=== PATIENT | female | born 1935 | race Caucasian/White ===

== ENCOUNTER 2019-04-29 19:45 | Inpatient (IN) | payer MEDICARE, SELFPAY ==
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
[2019-04-29 21:46] VITALS: BP 169/83; PULSE 76; RESP 18; TEMP 37.1; O2SAT 96
[2019-04-29 22:01] VITALS: BP 169/83; PULSE 76; RESP 18; TEMP 37.1; O2SAT 96
[2019-04-30 00:12] LABS: INR 1.1 (0.9-1.1); Prothrombin Time 10.8 sec (9.3-11.0)
[2019-04-30] MEDS: Normal Saline Flush 10 ML SYR (00:26)
[2019-04-30] MEDS: Normal Saline 1,000 ML 80 ML IV ×2 (00:26→17:07)
[2019-04-30] MEDS: Acetaminophen Solution 650 MG/20.3 ML CUP PO ×4 (00:49→17:38)
[2019-04-30 01:05] LABS: HCT 38.2 % (36.0-46.0); HGB 12.4 g/dL (12.0-15.5); Mean Corp. HGB Concentration 32.5 g/dL (32.0-36.0); Mean Corpuscular Hemoglobin 29.2 pg (27.0-33.0); Mean Corpuscular Volume 89.9 fL (80-95); Mean Platelet Volume 10.3 fL (8.0-11.0); Platelet Count 232 x1000/uL (130-400); RBC 4.25 m/cumm (4.00-5.20); RBC Distribution Width 13.9 % (11.7-14.6); White Blood Cell Count 9.89 k/cumm (4.4-10.8)
[2019-04-30 01:14] LABS: ALT 17 U/L (14-59); AST 18 U/L (15-37); Albumin 3.2 g/dL (3.4-5.0); Alkaline Phosphatase 56 U/L (46-116); Anion Gap 9.8 mmol/L (3-11); BUN 9 mg/dL (7-18); Bilirubin, Total 1.4 mg/dL (0.2-1.0); CO2 27.2 mmol/L (21.0-32.0); CREATININE 1.01 mg/dL (0.55-1.02); Calcium 8.3 mg/dL (8.5-10.1); Chloride 103 mmol/L (98-107); Estimated GFR 52.35 (mL/min/1.73m2); Glucose 149 mg/dL (74-106); Potassium 3.5 mmol/L (3.5-5.1); Sodium 140 mmol/L (136-145); Total Protein 6.4 g/dL (6.4-8.2)
[2019-04-30 03:43] VITALS: BP 155/70; PULSE 72; RESP 19; TEMP 36.6; O2SAT 95
[2019-04-30] MEDS: Heparin 5,000 UNITS/ML VIAL 5000 UNITS SC ×3 (05:56→21:40)
[2019-04-30 06:36] LABS: HCT 37.8 % (36.0-46.0); HGB 12.1 g/dL (12.0-15.5); Mean Corpuscular Hemoglobin 28.8 pg (27.0-33.0); Mean Platelet Volume 10.3 fL (8.0-11.0); Platelet Count 244 x1000/uL (130-400); RBC Distribution Width 13.9 % (11.7-14.6); White Blood Cell Count 8.16 k/cumm (4.4-10.8)
[2019-04-30 06:51] LABS: ALT 17 U/L (14-59); AST 17 U/L (15-37); Albumin 3.1 g/dL (3.4-5.0); Alkaline Phosphatase 53 U/L (46-116); Anion Gap 10.1 mmol/L (3-11); BUN 9 mg/dL (7-18); Bilirubin, Total 1.8 mg/dL (0.2-1.0); CO2 25.9 mmol/L (21.0-32.0); CREATININE 0.79 mg/dL (0.55-1.02); Calcium 8.3 mg/dL (8.5-10.1); Chloride 105 mmol/L (98-107); Glucose 113 mg/dL (74-106); Potassium 3.4 mmol/L (3.5-5.1); Sodium 141 mmol/L (136-145); Total Protein 6.3 g/dL (6.4-8.2)
[2019-04-30 07:40] VITALS: BP 169/93; PULSE 76; RESP 18; TEMP 37.1; O2SAT 96
--- NOTE | 2019-04-30 08:47 | PDOC.CMIN ---
- If Service Date Differs Date of service: 04/30/19 Time of Service: 08:47 Care Management Initial Assess REASON FOR HOSPITALIZATION:: Fracture of the humerous and tibia PAST MEDICAL HISTORY/PAST SURGICAL HISTORY:: HTN, carcinoma of the skin, hiatal hernia, depression, GERD, anxiety PREVIOUS FUNCTIONAL STATUS/SOCIAL/FAMILY SUPPORTS:: Leann lives at home alone elderly housing in [place], [place]. She does not use equipment at baseline, Leann family is present during assessment Leann does drive, she also depends on her family for transportation for appointments. She is able to make her own meals, and states she has several friends in the apartment complex. CURRENT FUNCTIONAL STATUS:: Leann is alert and engaged during assessment, her family is present and engaged. Leann is unsure what recovery will look like and wants to be informed of expectations. She will plan to return home with increase services however is open to SNF if needed at time of discharge. CM did provide VPAC form to family to review local and distance [place] [facility] [place] facility, including how to compare online. will order walking boot to have it placed on Wednesday. Leann will be assessed by PT for mobility and function. Leann will also benefit from OT to determine level of need at home. ADVANCE DIRECTIVES:: None on file patient states she does have one, CM reviewed the [place] advance directive site, without result. CM will follow up with primary care to determine if primary care has a copy. Has patient been provided with information about the portal?: Yes Did the patient sign up for the portal?: No CODE STATUS:: Full Code INSURANCE COVERAGE / FINANCIAL ISSUES:: Medicare and finanical assistance CURRENT HOME/COMMUNITY SERVICES/EQUIPMENT:: [facility] ([employer]) is the person she reports does paperwork with her. PRIMARY CARE PHYSICIAN:: Cecille Arriaga ([facility]). POTENTIAL DISCHARGE NEEDS:: To be determined home with home health and primary care follow up vs SNF for short term rehab. PATIENT/FAMILY EDUCATION NEEDS:: Discharge education, limitations and follow up plan of care including ask me three and self management. ANTICIPATED BARRIERS TO DISCHARGE:: None identified TRANSPORTATION:: Pending disposition if she returns home Son Sharad will provide transportation PLAN:: Leann will be discharge when medically ready. She is currently receiving pain management, and PT/OT services have been ordered. CM to continue ongoing assessment to provide support discharge planning and disposition.
--- NOTE | 2019-04-30 09:14 | DI.RAD_ITS ---
EXAM: XR SHOULDER LT COMPLETE 2+V INDICATION: CHECK PROX HUMERUS FX ALIGNMENT. COMPARISON: No exams were available for comparison TECHNIQUE: 2D digital imaging was performed. FINDINGS: There is a fracture extending transversely through the surgical neck of the humerus. There is a disp laced fragment involving the greater tuberosity. Fracture does not appear to extend to the articular surface. The glenoid and AC joint appear intact. No rib fractures or pneumothorax is seen. IMPRESSION: Fracture of the humeral head with displaced greater tuberosity fragment.
--- NOTE | 2019-04-30 09:19 | DI.RAD_ITS ---
EXAM: XR ANKLE LT COMPLETE INDICATION: CHECK FX ALIGNMENT IN SPLINT. COMPARISON: No exams were available for comparison TECHNIQUE: 2D digital imaging was performed. FINDINGS: Exam is limited by posterior cast material. There is lateral soft tissue swelling. There is a mildl y displaced fracture of the distal fibula. There is mild widening of the medial ankle mortise. No a dditional fractures are identified. IMPRESSION: Mildly displaced distal fibular fracture and mild medial ankle mortise widening.
--- NOTE | 2019-04-30 09:58 | DI.VRAD_ITS ---
PROCEDURE INFORMATION: Exam: XR Left Shoulder Exam date and time: 04/30/2019 9:14 AM Age: 83 years old Clinical indication: Condition or disease; Patient HX: Check prox humerus FX alignment TECHNIQUE: Imaging protocol: XR Left shoulder. Views: 2 or more views. COMPARISON: No relevant prior studies available. FINDINGS: Bones/joints: Impacted humeral neck fracture. 4.6 cm fracture fragment is displaced a lateral to the humeral head. Soft tissues: Soft tissue swelling of the shoulder IMPRESSION: 1. Impacted humeral neck fracture. 2. 4.6 cm fracture fragment is displaced a lateral to the humeral head. Dictated and Authenticated by: Corby Gutierrez MD. Ordering:RUSLAN Sorto MD
--- NOTE | 2019-04-30 09:59 | DI.VRAD_ITS ---
PROCEDURE INFORMATION: Exam: XR Left Ankle Exam date and time: 04/30/2019 9:19 AM Age: 83 years old Clinical indication: Condition or disease; Patient HX: Check FX alignment in splint TECHNIQUE: Imaging protocol: XR Left ankle. Views: 3 or more views. COMPARISON: No relevant prior studies available. FINDINGS: Bones/joints: Minimally displaced spiral oblique fracture of the distal fibula in good alignment. Soft tissues: Bimalleolar soft tissue swelling IMPRESSION: Minimally displaced spiral oblique fracture of the distal fibula in good alignment. . Dictated and Authenticated by: Corby Gutierrez MD. Ordering:RUSLAN Sorto MD
--- NOTE | 2019-04-30 10:26 | PHARADMIT ---
Addendum entered by Jazz Bailon 05/01/19 16:37: Pharmacy Note Subjective doing better than surgeon expected, working with PT, has fracture walking brace Objective bp-149/83 other VS okay no labs Assessment heparin discontinued, enoxaparin to start in the morning Plan possible SNF for rehab once ready Original Note: Admission Pharmacy Clinical Review Fractured humerous & Tibia Code Status Full Code Current Weight 72.5 kg Renally Cleared and Narrow Therapeutic Index Meds CrCl~52ml/min QTc Value / Action Taken qtc 456 BP Control, Fever BP 169/93 Pain 3/10 Electrolytes reviewed K+ 3.4 (not replaced at this time) DVT Prophylaxis Heparin SQ Opiate Usage / Scheduled Bowel Regimen Ordered yes/yes (not using Fentanyl) Plt/SCr for Heparin / Enoxaparin Plt 244 SCr 0.79 INR for Warfarin INR 1.1 H/H stable, WBC/Bands H/H 12.1/37.8 WBC 8.16 Antibiotic appropriateness n/a Cultures and Sensitivities n/a Surgical ABX d/c within 24 hr DM control / Insulin Dosing BG 113 Heart Failure (Check EF%) (ADOLFO's, B-Block, Diuretics) NONE IV to PO Switch Home Meds Reviewed Pt's own Prevacid 15mg....not brought in as of this note, RN aware Home Meds Not Ordered ok Comments Brought in from [facility]-they don't have Ortho on the weekends Ortho consult Will likely not need surgery, will need PT, ?short term rehab, ?swing
[2019-04-30] MEDS: POTASSIUM CHLORIDE 20 MEQ, POTASSIUM CHLORIDE 10 MEQ 30 MEQ PO (11:27)
[2019-04-30] MEDS: Polyethylene Glycol 3350 17 GM PACKET PO (12:47)
--- NOTE | 2019-04-30 13:00 | OCONE_ITS ---
Date of service: 04/30/19 Time of Service: 13:00 History of Present Illness History of Present Illness Chief Complaint: Left shoulder and left ankle pain Narrative: There is an 83-year-old white female who slipped on the ice and fell landing on her left side yesterday. She was seen at [facility] and was found to have a fracture distal fibula on the left that was mildly displaced. The ankle mortise was supposedly anatomically maintained. In addition she had a fracture of the proximal humerus on the left. The ho spitalist at [facility] would not accept the patient unless there was orthopedic coverage. This was despite the fact that she had no operative orthopedic problem. Their orthopedist was not can be available till Wednesday. They tried to have her go to [facility] but the hospitalist at [facility] also refused to admit the patient. The hospitalist at [facility] also refused. I was called by the ER physician at [facility] and I agreed to consult and treat the patient if the hospitalist at [facility] agreed to admit the patient. Dr. Kerr was the hospitalist and agreed to accept the patient with me as a consult. It was probably going to be really for placement because says she could not transfer move independently because of her to fractures. Assessment and Plan Assessment and plan (1) Fracture, humerus closed: Status: Acute Assessment and plan: Assessment: Mildly displaced fracture greater tuberosity on the left. Would not consider ORIF in an 83-year-old with the injury in the nondominant arm. Would treat closed with a sling. The main problem is to be make it difficult for her to use her upper extremities to walk when she has a fracture of her left ankle. Plan: Sling for comfort. We will let her move her arm as much as discomfort allows. Qualifiers: Encounter type: initial encounter Humerus Location: shaft Fracture morphology: comminuted Fracture alignment: displaced Laterality: left Qualified Code(s): S42.352A - Displaced comminuted fracture of shaft of humerus, left arm, initial encounter for closed fracture (2) Fracture of distal end of fibula: Status: Acute Assessment and plan: Assessment: Fracture distal fibula left with intact a nkle mortise. This will only require close treatment. And put her in an Aircast fracture walking boot. She will be able to put some weight on it but be a while before she can transfer and ambulate independently. She is going to need placement in a correction facility until she can move independently enough to go home. Plan: We will exchange her posterior splint for Aircast fracture walking boot tomorrow. PT will start working with her and see if she can start doing some transfers. She will need correction facility placement for mobilization until she is independent enough to go home. [facility] Medical History Basal cell carcinoma of skin (Acute) 2017 Chronic anxiety (Acute) Chronic constipation (Acute) GERD (gastroesophageal reflux disease) (Chronic) Hiatal hernia (Chronic) Major depression, chronic (Acute) Osteopenia (Acute) Social History Smoking/Tobacco Use Status: Former Tobacco Use Tobacco: How many years used: 5 Alcohol Intake: former Drug use: Never Do you feel safe at home: Yes Do you feel safe in your relationship?: Yes Exam Narrative Exam Narrative: Her left ankle is in the splint unfortunately she is plantarflexed in the splint which is not ideal. Neurovascular examination of her toes are intact. Neurovascular examination left hand is normal. Her sling is not well applied so I adjust the straps so it fits well and supports her arm. Limited gentle passive motion of her left shoulder does not cause her much discomfort. Since [facility] did not send her x-rays with her I obtain new x-rays today. 3 views of the left ankle show a short oblique fracture of the with mild displacement. AP and a Y view x-ray of the left shoulder shows humeral head is well centered in the glenoid. It looks like she has a mainly a greater t uberosity fracture with some moderate posterior and and medial displacement of the greater tuberosity fracture fragment. Results Last Vital Signs Temp 37.1 C 04/30/19 07:40 Pulse 76 04/30/19 07:40 Resp 18 04/30/19 07:40 BP 169/93 H 04/30/19 07:40 Pulse Ox 96 04/30/19 07:40 Labs Result diagrams: 04/30/19 06:05 04/30/19 06:05 Labs: Laboratory Results - last 24 hr 04/29/19 04/29/19 04/29/19 00:49 00:49 22:14 WBC 9.89 RBC 4.25 Hgb 12.4 Hct 38.2 MCV 89.9 MCH 29.2 MCHC 32.5 RDW 13.9 Plt Count 232 MPV 10.3 PT 10.8 INR 1.1 Sodium 140 Potassium 3.5 Chloride 103 Carbon Dioxide 27.2 Anion Gap 9.8 BUN 9 Creatinine 1.01 Estimated GFR/1.73 m2 52.35 Glucose 149 H Calcium 8.3 L Total Bilirubin 1.4 H AST 18 ALT 17 Alkaline Phosphatase 56 Total Protein 6.4 Albumin 3.2 L 04/30/19 04/30/19 06:05 06:05 WBC 8.16 RBC 4.20 Hgb 12.1 Hct 37.8 MCV 90.0 MCH 28.8 MCHC 32.0 RDW 13.9 Plt Count 244 MPV 10.3 PT INR Sodium 141 Potassium 3.4 L Chloride 105 Carbon Dioxide 25.9 Anion Gap 10.1 BUN 9 Creatinine 0.79 Estimated GFR/1.73 m2 >= 60.00 Glucose 113 H Calcium 8.3 L Total Bilirubin 1.8 H AST 17 ALT 17 Alkaline Phosphatase 53 Total Protein 6.3 L Albumin 3.1 L
[2019-04-30] MEDS: Normal Saline Flush 10 ML SYR IVP (13:46)
--- NOTE | 2019-04-30 15:08 | PGE_ITS ---
Date of Service Date of service: 04/30/19 Time of Service: 15:08 Assessment and Plan Assessment and plan (1) Fracture of distal end of fibula: Status: Acute Assessment and plan: The distal fibula fracture is being treated with a fracture boot. She is weightbearing as tolerated but will likely not tolerate much weight on that foot for quite some time. Physical therapy is done in initial evaluation and has already set her up with a platform walker. It will be quite tenuous in getting her back on her feet for the next several days. She will need a half-way facility for rehab going forward. (2) Fracture, humerus closed: Status: Acute Assessment and plan: Proximal humerus fracture on the left is going to limit her ability to triangulate to walk with her fractured left ankle. Physical therapy is going to work with her on this using the platform walker. We will see what her pain tolerance is. Her forgetfulness and dementia may play a role and could put her at increased risk of further falling and or reinjuring. Qualifiers: Encounter type: initial encounter Humerus Location: shaft Fracture morphology: comminuted Fracture alignment: displaced Laterality: left Qualified Code(s): S42.352A - Displaced comminuted fracture of shaft of humerus, left arm, initial encounter for closed fracture (3) Dementia: Status: Chronic Assessment and plan: Patient admits that she is forget full as well as being somewhat confused. Is not clear what her baseline is as far as activities of daily living. She lives independently in an apartment in [place]. Her son and daughter appear to be quite supportive. She remains a full code. Subjective Subjective Interval history since last seen: Patient was admitted overnight following a fall with fracture to the left humerus and left ankle yesterday, 04/29/2019. She was seen today by Dr. Olivares. He felt these were nonoperative injuries. He recommended a sling for the left arm and a fracture boot for the left foot. She can weight-bear as tolerated but did not think that she would be able to do transfers or any walking for quite some time. He recommends a half-way facility for rehab. Patient is with her son and daughter. She is quite confused and repetitive. They are providing some form of reassurance and support. Exam Narrative Exam Narrative: On exam the patient is obviously somewhat confused and confabulatory. She is able to recount some of the history but admits that she is forgetful. She is pleasant and interactive. She has no respiratory diffic ulty. Her lung exam is clear on the right and left. Her heart sounds are regular no significant murmur. No abdominal tenderness. The left arm shows significant bruising in the distal portion of the upper arm laterally. It is tender to any movement. Otherwise no outward sign of deformity. The left ankle is bandaged with a bulky dressing and posterior splint. Her toes are pink and appear to be well perfused. Objective Objective Clinical Data: Abnormal lab results 04/29/19 04/30/19 Range/Units 00:49 06:05 Potassium 3.4 L (3.5-5.1) mmol/L Glucose 149 H 113 H (74-106) mg/dL Calcium 8.3 L 8.3 L (8.5-10.1) mg/dL Total Bilirubin 1.4 H 1.8 H (0.2-1.0) mg/dL Total Protein 6.3 L (6.4-8.2) g/dL Albumin 3.2 L 3.1 L (3.4-5.0) g/dL Vital Signs Temperature 37.1 C 04/30/19 07:40 Temperature Source Tympanic 04/30/19 07:40 Pulse 76 04/30/19 07:40 Pulse Rhythm Regular 04/30/19 08:00 Respiratory Rate 18 04/30/19 07:40 Respiratory Effort Non-Labored 04/30/19 08:00 Respiratory Depth Normal 04/30/19 08:00 Respiratory Pattern Normal 04/30/19 08:00 Blood Pressure 169/93 H 04/30/19 07:40 Pulse Oximetry 96 04/30/19 07:40 Oxygen Delivery Method Room Air 04/30/19 07:40 Oxygen Flow Rate 0 04/30/19 07:40 Pain Level 3 04/30/19 10:21 Intake & Output 04/29/19 04/30/19 04/30/19 23:59 11:59 23:59 Intake Total 430 / 430 Output Total 400 / 400 Balance -400 / 30 430 / 30 Weight 72 kg 72.5 kg Intake: Oral 430 / 430 Output: Urine 400 / 400 Other: Urine Color Light Darlyn Urine Appearance Clear Clear Urine Odor Strong Voiding Methods Bedside Commode Laboratory Results WBC 8.16 k/cumm (4.4-10.8) 04/30/19 06:05 RBC 4.20 m/cumm (4.00-5.20) 04/30/19 06:05 Hgb 12.1 g/dL (12.0-15.5) 04/30/19 06:05 Hct 37.8 % (36.0-46.0) 04/30/19 06:05 MCV 90.0 fL (80-95) 04/30/19 06:05 MCH 28.8 pg (27.0-33.0) 04/30/19 06:05 MCHC 32.0 g/dL (32.0-36.0) 04/30/19 06:05 RDW 13.9 % (11.7-14.6) 04/30/19 06:05 Plt Count 244 x1000/uL (130-400) 04/30/19 06:05 MPV 10.3 fL (8.0-11.0) 04/30/19 06:05 PT 10.8 sec (9.3-11.0) 04/29/19 22:14 INR 1.1 (0.9-1.1) 04/29/19 22:14 Sodium 141 mmol/L (136-145) 04/30/19 06:05 Potassium 3.4 mmol/L (3.5-5.1) L 04/30/19 06:05 Chloride 105 mmol/L (98-107) 04/30/19 06:05 Carbon Dioxide 25.9 mmol/L (21.0-32.0) 04/30/19 06:05 Anion Gap 10.1 mmol/L (3-11) 04/30/19 06:05 BUN 9 mg/dL (7-18) 04/30/19 06:05 Creatinine 0.79 mg/dL (0.55-1.02) 04/30/19 06:05 Estimated GFR/1.73 m2 >= 60.00 (mL/min/1.73m2) 04/30/19 06:05 Glucose 113 mg/dL (74-106) H 04/30/19 06:05 Calcium 8.3 mg/dL (8.5-10.1) L 04/30/19 06:05 Total Bilirubin 1.8 mg/dL (0.2-1.0) H 04/30/19 06:05 AST 17 U/L (15-37) 04/30/19 06:05 ALT 17 U/L (14-59) 04/30/19 06:05 Alkaline Phosphatase 53 U/L (46-116) 04/30/19 06:05 Total Protein 6.3 g/dL (6.4-8.2) L 04/30/19 06:05 Albumin 3.1 g/dL (3.4-5.0) L 04/30/19 06:05
[2019-04-30 16:59] VITALS: BP 166/84; PULSE 77; RESP 18; TEMP 36.5; O2SAT 95
[2019-04-30] MEDS: Docusate Sodium 100 MG CAP PO (17:38)
[2019-04-30 19:38] VITALS: BP 164/82; PULSE 76; RESP 18; TEMP 36.6; O2SAT 96
[2019-05-01] MEDS: Acetaminophen Solution 650 MG/20.3 ML CUP PO ×3 (00:24→23:14)
[2019-05-01 02:00] VITALS: BP 153/77; PULSE 80; RESP 17; TEMP 36.8; O2SAT 95
[2019-05-01] MEDS: Heparin 5,000 UNITS/ML VIAL 5000 UNITS SC ×2 (05:34→15:24)
[2019-05-01 07:50] VITALS: BP 127/76; PULSE 88; RESP 17; TEMP 37.1; O2SAT 98
--- NOTE | 2019-05-01 08:38 | PT.INIE ---
Date of service: 05/01/19 Time of Service: 08:38 PT Notes Visit Reasons: HUMEROUS FRACTURE,TIBIAL FRACTURE Physical Therapy Inpatient Initial Evaluation Date: 05/01/2019 Referring Doctor: Andrea Perez M.D. PT Orders: PT CONSULT: Eval for assistive device? Precautions: Fall. Standard. Activity as tolerated. Sling on L UE. WBAT on L LE. Patient Profile/Admitting Diagnosis: Pt is an 81-year-old female, with a history of dementia, that presented to the ER on 04/28/2019 after a fall onto her left side. Transferred from [facility] due to limited orthopedic coverage. Pt was admitted to the hospital with a minimally displaced spiral oblique fracture of the left fibula and an impacted humeral neck fracture. PMHX: Medical History Basal cell carcinoma of skin (Acute) 2017 Chronic anxiety (Acute) Chronic constipation (Acute) GERD (gastroesophageal reflux disease) (Chronic) Hiatal hernia (Chronic) Major depression, chronic (Acute) Osteopenia (Acute) Social History/Home Situation: Pt lives alone in an apartment in [place]. She notes that she does not have any stairs to enter, only a small step up onto the sidewalk. Daughter lives in [place]. Equipment Owned/DME: old cane at home. Subjective: Pt notes that she was living alone and still driving up until she had fallen. Objective: General Observation: IV line in L UE. ADOLFO bandage on L LE. Significant bruising of L UE. Mental Status: Pt is alert to her name and place when asked. She appears to be aware of her fall during initial evaluation. Able to follow simple commands and single step questions. Pain: 7/10 in L UE ROM: Right Upper Extremity: Shoulder Flexion WFL. Shoulder abduction WFL. Elbow flexion WFL. Wrist flexion WFL. Opening and closing of hand WFL. Left Upper Extremity: Shoulder Flexion WFL. Shoulder abduction WFL. Elbow flexion WFL. Wrist flexion WFL. Opening and closing of hand WFL. Right Lower Extremity: Hip flexion WFL. Hip abduction WFL. Knee flexion WFL. Ankle dorsiflexion WFL. Ankle plantarflexion WFL. Left Lower Extremity: Hip flexion WFL. Hip abduction WFL. Knee flexion WFL. Ankle dorsiflexion WFL. Ankle plantarflexion WFL. Strength: Right Upper Extremity: Shoulder flexors 5/5. Shoulder abductors 5/5. Elbow flexors 5/5. Elbow extensors 5/5. Chartered Financial Analyst strong. Left Upper Extremity: Shoulder flexors 2+/5. Shoulder abductors 2+/5. Elbow flexors 3+/5. Elbow extensors 3+/5. Chartered Financial Analyst strong. Right Lower Extremity: Hip flexors 5/5. Hip abductors 5/5. Knee flexors 5/5. Knee extensors 5/5. Ankle dorsiflexors 5/5. Ankle plantarflexors 5/5. Left Lower Extremity: Hip flexors 3-/5. Hip abductors 3-/5. Knee flexors 3-/5. Knee extensors 3-/5. Ankle dorsiflexors 3-/5. Ankle plantarflexors 3-/5. Sensation: Intact as to pain and pressure on bilateral lower extremities. Bed Mobility/Transfers: Rolling Min A with HOB at 45 degrees Supine to sit Min A Sit to supine Min A Sit to stand Min A x 2 Stand to sit Min A x 2 Bed to chair Min A x 2 Chair to bed Min A x 2 Gait: Pt was able to perform a standing pivot with 5 feet from the bed to the chair, WBAT on the L LE, using a aurelio-walker. Sling on L UE. Required Min A x2 of PT and PT student. Difficulty shifting weight on to R UE through walker to move R LE forward and appears to be hesitant to put weight onto her L LE. Decreased step length and height. Decreased estefania. Balance: Static Sitting: Normal Dynamic Sitting: Normal Static Standing: Poor Dynamic Standing: Poor Special Tests: Mobility Limitations Standardized Measure [facility] AM-PAC 6 clicks Basic Mobility Inpatient Short Form: Raw Score: 14 CMS Score: 61% deficit Informed Consent/Education: Patient instructed in purpose of PT consult and plan of care. Assessment: Pt is an 81-year-old female, with a history of dementia, that presented to the ER on 04/28/2019 after a fall onto her left side. Transferred from [facility] due to limited orthopedic coverage. Pt was admitted to the hospital with a minimally displaced spiral oblique fracture of the left fibula and an impacted humeral neck fracture. Pt presents to physical therapy with impairment level findings and functional limitations as listed below. AM-PAC score of 14 with 61% deficit. She would continue to benefit from skilled physical therapy at this time. Patient presents with clinical signs and symptoms consistent with current/admitting diagnoses that have resulted to mobility limitations, gait instability, and generalized weakness as demonstrated by the following impairment level findings: 1. Decreased strength to L LE and UE major muscle groups 2. Impaired sitting/standing balance 3. Impaired activity tolerance 4. Limitation of joint range of motion in left UE and LE due to pain Impairments are contributing to the following functional limitations: 1. Dependent bed mobility skills 2. Increased dependence with transfers 3. Inability to safely ambulate without assistive device and physical assistance 4. Increase completion time for mobility ADL performance 5. Increased fall risk 6. Inability to negotiate steps alone safely Patient is assessed as a 41009 moderate complexity based on the following: History: Pt presents to physical therapy with impairment level findings and functional limitations as listed below. AM-PAC score of 14 with 61% deficit. She would continue to benefit from skilled physical therapy at this time. Examination: Demonstrable impairment in strength, balance, and range of motion with underlying impairments and functional limitations as documented above Presentation: Evolving Decision Makin moderate complexity Goals: Goals X1 week 1. Supine-Sit independent 2. Sit-Supine independent 3. Sit-Stand independent 4. Stand-Sit independent 5. Bed-Chair independent 6. Chair-Bed independent 7. Independent gait on level surface with use of least restrictive device for at least 300 feet without report of pain nor dyspnea 8. Independent stair negotiation while holding onto bilateral rails for at least 4 steps without report of pain nor dyspnea 9. Independent with home exercise program 10. Good static and dynamic standing balance/tolerance Plan of Care/Treatment Plan: 1-2x/day, 7 days/week x 1 week. Plan of care has been reviewed with the PRINTING ASSISTANT providing the service under Physical Therapy direction. Initiate Physical Therapy intervention for strengthening, bed mobility, transfers, gait, stairs, balance training, use of assistive device. DISCHARGE RECOMMENDATIONS: Pt will benefit from senior care facility placement for continued skilled physical therapy in order to progress mobility level, strength, and balance in preparation for a safe discharge to home. TREATMENT CODE/TIME: 39993 x 37 minutes beginning at 8:38 A.M. Thank you very much for this referral. Mykala Wiswell, SPT Doctor of Physical Therapy Student [facility] Supervision provided by Nancy Mccall PT, DPT, CLT [facility] [place], [place]
--- NOTE | 2019-05-01 08:56 | OT.INIE ---
Occupational Therapy Notes Inpatient Occupational Therapy Evaluation Date: 05/01/19 Referring Doctor: Dr. Perez OT Orders: Urgent- Eval for assistive devices Precautions: Fall, Standard, Full code PATIENT PROFILE/ADMITTING DIAGNOSIS: Pt is an 83 year old female who was admitted on 04/29/19 for (L) shoulder and ankle pain s/p a fall on the ice. Xray confirmed a (L) humerus fx and (L) ankle sprain which pt was seen by Dr. Olivares for orthopedic consultation. Past Medical History- Medical History Basal cell carcinoma of skin (Acute) 2017 Chronic anxiety (Acute) Chronic constipation (Acute) GERD (gastroesophageal reflux disease) (Chronic) Hiatal hernia (Chronic) Major depression, chronic (Acute) Osteopenia (Acute) Social History/Home Situation: Pt states that she lives in [place] in an apartment. She reports that she is totally (I) at baseline and gets (A) from her neighbors. Pt is confused and is unable to provide OT with consistent baseline level of function. She states at first that she never gets washed up because there is no where in her apartment to get washed up. Later she reports that she has a tub/shower and uses that to get washed up. Equipment owned/DME: grab bars, grabber-otherwise pt is unable to speak to any adaptive equipment that she has. SUBJECTIVE: Pt was sitting in chair when OT arrived. She was agreeable to skilled OT session and notes that she doesn't think she will need to be here long. Throughout conversation with pt, Pt asked OT multiple times who she was and what was happening. OBJECTIVE: General Observation: Confused, she is pleasant and able to answer questions appropriately. Mental Status: A&Ox2 Pain: c/o pain in (L) shoulder and foot. ROM: RUE AROM WFL L UE Shoulder flexion pt denies due to pain, elbow WNL, hand and digits WNL STRENGTH: RUE Grossly 4/5 throughout LUE NT FUNCTIONAL MOBILITY/ADLS: BATHING Pt denies actually performance of bathing routine-She is able to perform functional ROM required with (R) UE but requires mod vc for performance. DRESSING Sitting in bed Dressing UE Requires mod (A) with don and doffing hospital gown due to fx Dressing LE Max (A) don and doffing (B) socks. GROOMING NT TOILETING NT EATING Pt is (I) in seated position with hand to mouth translation and opening packages. BALANCE: Static sitting Normal Dynamic Sitting Good SPECIAL TESTS: Daily Activity Limitations Standardized Measure [facility] AM -PAC ?6 clicks? Daily Activity Inpatient Short Form: Raw score: 20 Standardized score: 42.03 CMS score: 38.32% INFORMED CONSENT/EDUCATION: Pt instructed in purpose of OT Consult and plan of care. ASSESSMENT: Patient is a 83-year-old female referred to occupational therapy services with diagnosis of (L) humeral fx (L) ankle sprain. Patient presents with clinical signs and symptoms consistent with dx, as demonstrated by the following impairment level findings: Fx in (L) shoulder, fx in (L) ankle, pain with any functional performance, decreased functional activity tolerance, decreased performance of ADLs/IADLs, decreased cognition. Impairments are contributing to the following functional limitations: Decreased safety awareness, decreased functional activity tolerance, decreased ability to perform ADLs in standing position, decreased performance of functional mobility. AMPAC score 20 Patient is assessed as a Moderate 46669 complexity based on the following: History: See above Examination: see above Presentation:Evolving Decision Making: AMPAC score 20 GOALS Goals x1 week 1. Grooming- pt will be able to (I) brush her teeth and hair in sitting position 2. Dressing- sitting on side of bed (I) with don and doffing hospital gown 3. Bathing- Min (A) with (B) LE and UE sitting on side of bed 4. Toileting- on toilet min (A) PLAN OF CARE/TREATMENT PLAN: 1x/day, 5 days/ week x 1week Initiate Occupational Therapy Services for bathing, dressing, grooming, toileting, eating, transfer training. DISCHARGE RECOMMENDATIONS Based on pts decline in functional (I) and increased pain levels OT recommends that pt go to SNF when medically cleared per MD. TREATMENT TIME/MINUTES/CODES 72192, 32935, 30 minutes (07:30) Destiny Capps OTR/[facility]
--- NOTE | 2019-05-01 11:23 | W.NUTCONSULT ---
Date of service: 05/01/19 Time of Service: 11:23 Nutritional Consult ASSESSMENT: 83 year old female admitted with tibial fracture. Following regular meal plan with adequate intake. BMI wnl for age. Not considered at nutritional risk at this time. MONITORING AND EVALUATION: po intake, weight, labs Time Spent in Nutritional Counseling and Treatment: 0 time spent face to face
--- NOTE | 2019-05-01 11:45 | PTTR_ITS ---
Date of service: 05/01/19 Time of Service: 11:45 PT Notes Visit Reasons: HUMEROUS FRACTURE,TIBIAL FRACTURE Inpatient Physical Therapy Treatment Note [facility] Date: 05/01/2019 PRECAUTIONS: Standard. Fall. Activity as tolerated. Aircast on when out of bed for ambulation and transfers. SUBJECTIVE: Pt reports that the walkway to her home is up hill, which she feels would be difficult to do with her current condition. She states that since she has just been sitting around, she may just go home for a while. OBJECTIVE: IV line in R UE. Aircast on L LE. PAIN: BED MOBILITY/TRANSFERS Rolling L/R: - Supine-sit: - Sit-supine: - Sit-stand: Min A of 2 Stand-sit: Min A of 2 Bed-Chair: Min A of 2 Chair-bed: Min A of 2 GAIT: Pt was able to ambulate 25 feet, WBAT on the L LE, with the use of a aurelio- walker. Min A of 2 by PT and PT student. Arm sling on L UE. Aircast on L LE. ASSESSMENT: Air cast boot fitted with patient. Pt demonstrated improved mobility with ambulation as she was able to walk a greater distance without complaints of increased pain. She presents with significantly less anxiety about shifting weight on to her left lower extremity with transfers and ambulation. Pt appears to be slightly more confused at the beginning of the treatment session as she continues to state she was going to go home for a while, but was able to report that she was at either a rehabilitation facility or the hospital. She would continue to benefit from skilled physical therapy at this time. PLAN: Continue with established POC. Discharge to fdc facility for continued skilled physical therapy. TREATMENT CODE/TIME: 19216 x 28 minutes beginning at 11:45 A.M. Stuart Paula, ADRIANO Doctor of Physical Therapy Student [employer] Supervision provided by Nancy Mccall PT, DPT, CLT [facility] [place], [place]
[2019-05-01 11:59] VITALS: BP 131/81; PULSE 83; RESP 18; TEMP 37.4; O2SAT 96
--- NOTE | 2019-05-01 14:19 | PT.INTREAT ---
Date of service: 05/01/19 Time of Service: 14:19 PT Notes Visit Reasons: HUMEROUS FRACTURE,TIBIAL FRACTURE 05/01/2019 SUBJECTIVE: Leann noting minimal discomfort in her arm and lower leg. She would like to try to go to the bathroom. OBJECTIVE: Seated in her chair. Agreeable to PT treatment. She would like to end up in the bed. TRANSFERS Sit to stand: Min A x1 Stand to sit: Min A x1 verbal cues Sit to supine: SBA GAIT Device: Teodoro walker R UE Weight bearing: AT L Assist: Min A x1, CGA Distance: 5'x2 ASSESSMENT: Pt is mobilizing with better ease this PM. She seems less confused than this AM and is able to recall the events of her fall. Pt would benefit from continued skilled PT services to increase her functional mobility and maximize her independence. PLAN: Continue current POC. Treatment time: Dary Genao, ONCOLOGY RADIATION PHYSICIAN
--- NOTE | 2019-05-01 15:08 | CHAPLAIN ---
Leann was resting in bed when I visited. She was very pleasant and told me about her fall and showed me her bruising. She talked about growing up in [facility], living in [place] [facility] and now [place]. She has a son and daughter to live near by as well as grandchildren who visit her as well and offer to help her. I will continue to visit Leann.
--- NOTE | 2019-05-01 15:34 | W.PM.PROGNOT ---
Date of Service Date of service: 05/01/19 Time of Service: 15:34 Assessment and Plan Assessment and plan (1) Fracture of distal end of fibula: Status: Acute Assessment and plan: Assessment: She is actually doing better than I would expect with the fracture walking brace at just day and a half after her injury. The brace will be much better than the splint for her. Plan: Weight-bear as tolerated to the fracture walking brace. She should remove it just for showering or bathing for now. As pain subsides she will be able to kick her leg out of the brace. I expect that will be in about 2 weeks. (2) Fracture, humerus closed: Status: Acute Assessment and plan: Assessment: Fracture proximal humerus on the left. This fracture also is causing her less pain than I would have expected at a day and a half post injury. Plan: Encourage her to take her left arm out of the sling as much as discomfort allows. We will just let her mobilize her shoulder initially. Would not do any active physical therapy until 6 weeks post injury. Qualifiers: Encounter type: initial encounter Humerus Location: shaft Fracture morphology: comminuted Fracture alignment: displaced Laterality: left Qualified Code(s): S42.352A - Displaced comminuted fracture of shaft of humerus, left arm, initial encounter for closed fracture Subjective Subjective Patient reports: feels better, pain is less and tolerating a regular diet Interval history since last seen: She feels much better with a walking boot then with a splint that was applied at [facility]. She said she was able to step on her foot without much discomfort. She says she is been able to tolerate taking her left arm out of the sling as well. Exam Narrative Exam Narrative: When I see her she is sitting up in bed with the sling off her left arm. She is able to use her left arm in a limited fashion within limits of pain. She has good sensation and circulation to the fingers of her left hand. The fracture walking boot is in place and appears to fit well. Physical therapy states she transferred and took a few steps quite well today. Objective Objective Clinical Data: Vital Signs Temperature 37.4 C 05/01/19 11:59 Temperature Source Tympanic 05/01/19 11:59 Pulse 83 05/01/19 11:59 Pulse Rhythm Regular 02/10/20 09:30 Respiratory Rate 18 05/01/19 11:59 Respiratory Effort 05/01/19 09:30 Respiratory Depth Normal 05/01/19 09:30 Respiratory Pattern Normal 05/01/19 09:30 Blood Pressure 131/81 05/01/19 11:59 Pulse Oximetry 96 05/01/19 11:59 Oxygen Delivery Method Room Air 05/01/19 11:59 Oxygen Flow Rate 0 05/01/19 11:59 Pain Level 0 05/01/19 11:59 Intake & Output 04/30/19 05/01/19 05/01/19 23:59 11:59 23:59 Intake Total 1670 / 1670 1450 / 1450 Output Total 300 / 700 400 / 400 Balance 1370 / 970 1450 / 1050 -400 / 1050 Weight 73.1 kg Intake: IV 1000 / 1000 1000 / 1000 Oral 670 / 670 450 / 450 Output: Urine 300 / 700 400 / 400 Other: Urine Color Yellow Yellow Yellow Urine Appearance Clear Clear Clear Urine Odor None None Normal Voiding Methods Bedside Commode Bedside Commode Bedside Commode Laboratory Results WBC 8.16 k/cumm (4.4-10.8) 04/30/19 06:05 RBC 4.20 m/cumm (4.00-5.20) 04/30/19 06:05 Hgb 12.1 g/dL (12.0-15.5) 04/30/19 06:05 Hct 37.8 % (36.0-46.0) 04/30/19 06:05 MCV 90.0 fL (80-95) 04/30/19 06:05 MCH 28.8 pg (27.0-33.0) 04/30/19 06:05 MCHC 32.0 g/dL (32.0-36.0) 04/30/19 06:05 RDW 13.9 % (11.7-14.6) 04/30/19 06:05 Plt Count 244 x1000/uL (130-400) 04/30/19 06:05 MPV 10.3 fL (8.0-11.0) 04/30/19 06:05 PT 10.8 sec (9.3-11.0) 04/29/19 22:14 INR 1.1 (0.9-1.1) 04/29/19 22:14 Sodium 141 mmol/L (136-145) 04/30/19 06:05 Potassium 3.4 mmol/L (3.5-5.1) L 04/30/19 06:05 Chloride 105 mmol/L (98-107) 04/30/19 06:05 Carbon Dioxide 25.9 mmol/L (21.0-32.0) 04/30/19 06:05 Anion Gap 10.1 mmol/L (3-11) 04/30/19 06:05 BUN 9 mg/dL (7-18) 04/30/19 06:05 Creatinine 0.79 mg/dL (0.55-1.02) 04/30/19 06:05 Estimated GFR/1.73 m2 >= 60.00 (mL/min/1.73m2) 04/30/19 06:05 Glucose 113 mg/dL (74-106) H 04/30/19 06:05 Calcium 8.3 mg/dL (8.5-10.1) L 04/30/19 06:05 Total Bilirubin 1.8 mg/dL (0.2-1.0) H 04/30/19 06:05 AST 17 U/L (15-37) 04/30/19 06:05 ALT 17 U/L (14-59) 04/30/19 06:05 Alkaline Phosphatase 53 U/L (46-116) 04/30/19 06:05 Total Protein 6.3 g/dL (6.4-8.2) L 04/30/19 06:05 Albumin 3.1 g/dL (3.4-5.0) L 04/30/19 06:05
[2019-05-01 15:47] VITALS: BP 149/83; PULSE 69; RESP 18; TEMP 36.5; O2SAT 98
--- NOTE | 2019-05-01 16:43 | W.PM.PROGNOT ---
Date of Service Date of service: 05/01/19 Time of Service: 16:44 Assessment and Plan Assessment and plan (1) Fracture of distal end of fibula: Status: Acute Assessment and plan: She is weight-bear as tolerated with the fracture boot. Continue to work with physical therapy. (2) Fracture, humerus closed: Status: Acute Assessment and plan: Continue in the sling. Pain control appears adequate. Qualifiers: Encounter type: initial encounter Humerus Location: shaft Fracture morphology: comminuted Fracture alignment: displaced Laterality: left Qualified Code(s): S42.352A - Displaced comminuted fracture of shaft of humerus, left arm, initial encounter for closed fracture (3) Dementia: Status: Chronic Assessment and plan: Ongoing issues with appropriateness for independent living. She will likely need at least a few weeks of rehabilitation prior to returning home to independent living. Subjective Subjective Interval history since last seen: Patient is overall comfortable. She remains moderately confused with very poor short-term memory. Her questions are quite repetitive. She was fitted for the fracture boot today and finds it is reasonably comfortable. She still has her sling. Son and daughter were in today. Exam Narrative Exam Narrative: On exam she is pleasant and in no significant distress. Exam of the left arm shows quite marked bruising of the lower portion of the left upper arm. It does not extend into the elbow as yet. She can move the arm at the elbow without much evidence of pain. She continues to wear the sling. The left lower extremity has the splint and bulky dressing in place. That was switched out by physical therapy later in the day and she has the fracture boot in place and has been able to stand and pivot. Objective Objective Clinical Data: Vital Signs Temperature 36.5 C 05/01/19 15:47 Temperature Source Tympanic 05/01/19 15:47 Pulse 69 05/01/19 15:47 Pulse Rhythm Regular 05/01/19 09:30 Respiratory Rate 18 05/01/19 15:47 Respiratory Effort 05/01/19 09:30 Respiratory Depth Normal 05/01/19 09:30 Respiratory Pattern Normal 05/01/19 09:30 Blood Pressure 149/83 H 05/01/19 15:47 Pulse Oximetry 98 05/01/19 15:47 Oxygen Delivery Method Room Air 05/01/19 15:47 Oxygen Flow Rate 0 05/01/19 15:47 Pain Level 0 05/01/19 15:47 Intake & Output 04/30/19 05/01/19 05/01/19 23:59 11:59 23:59 Intake Total 1670 / 1670 1450 / 1690 240 / 1690 Output Total 300 / 700 400 / 400 Balance 1370 / 970 1450 / 1290 -160 / 1290 Weight 73.1 kg Intake: IV 1000 / 1000 1000 / 1000 Oral 670 / 670 450 / 690 240 / 690 Output: Urine 300 / 700 400 / 400 Other: Urine Color Yellow Yellow Yellow Urine Appearance Clear Clear Clear Urine Odor None None Normal Voiding Methods Bedside Commode Bedside Commode Bedside Commode Laboratory Results WBC 8.16 k/cumm (4.4-10.8) 04/30/19 06:05 RBC 4.20 m/cumm (4.00-5.20) 04/30/19 06:05 Hgb 12.1 g/dL (12.0-15.5) 04/30/19 06:05 Hct 37.8 % (36.0-46.0) 04/30/19 06:05 MCV 90.0 fL (80-95) 04/30/19 06:05 MCH 28.8 pg (27.0-33.0) 04/30/19 06:05 MCHC 32.0 g/dL (32.0-36.0) 04/30/19 06:05 RDW 13.9 % (11.7-14.6) 04/30/19 06:05 Plt Count 244 x1000/uL (130-400) 04/30/19 06:05 MPV 10.3 fL (8.0-11.0) 04/30/19 06:05 PT 10.8 sec (9.3-11.0) 04/29/19 22:14 INR 1.1 (0.9-1.1) 04/29/19 22:14 Sodium 141 mmol/L (136-145) 04/30/19 06:05 Potassium 3.4 mmol/L (3.5-5.1) L 04/30/19 06:05 Chloride 105 mmol/L (98-107) 04/30/19 06:05 Carbon Dioxide 25.9 mmol/L (21.0-32.0) 04/30/19 06:05 Anion Gap 10.1 mmol/L (3-11) 04/30/19 06:05 BUN 9 mg/dL (7-18) 04/30/19 06:05 Creatinine 0.79 mg/dL (0.55-1.02) 04/30/19 06:05 Estimated GFR/1.73 m2 >= 60.00 (mL/min/1.73m2) 04/30/19 06:05 Glucose 113 mg/dL (74-106) H 04/30/19 06:05 Calcium 8.3 mg/dL (8.5-10.1) L 04/30/19 06:05 Total Bilirubin 1.8 mg/dL (0.2-1.0) H 04/30/19 06:05 AST 17 U/L (15-37) 04/30/19 06:05 ALT 17 U/L (14-59) 04/30/19 06:05 Alkaline Phosphatase 53 U/L (46-116) 04/30/19 06:05 Total Protein 6.3 g/dL (6.4-8.2) L 04/30/19 06:05 Albumin 3.1 g/dL (3.4-5.0) L 04/30/19 06:05
[2019-05-01] MEDS: Polyethylene Glycol 3350 17 GM PACKET PO (18:05)
[2019-05-01] MEDS: Docusate Sodium 100 MG CAP PO (18:05)
[2019-05-01 19:22] VITALS: BP 158/75; PULSE 66; RESP 18; TEMP 36.8; O2SAT 99
[2019-05-01 22:16] VITALS: BP 151/78; PULSE 72; RESP 19; TEMP 36.9; O2SAT 97
--- NOTE | 2019-05-01 22:34 | CMPROGNOTE_ITS ---
- If Service Date Differs Date of service: 05/01/19 Time of Service: 18:00 Care Management Progress Note S/O: CM met with Leann at the bedside she agrees to SNF placement for rehab prior to returning home. CM reviewed SNF options and reviewed benefits. Patient choice [facility]. Referrals faxed to both facilities. CM will need follow up with admissions to review status. Family not present at the time of choice, CM will need to review. Leann continues to work with PT and OT until transition to SNF. A: Leann is a 83 year old female admitted status post fall resulting in a Fracture of the left humerous and tibia. P: CM faxed referrals to [facility], [facility] pending review. Patient was provided VPAC and reviewed options and review of nursing facilities. Transportation to be determined pending disposition.
[2019-05-02 01:10] VITALS: BP 133/79; PULSE 68; RESP 18; TEMP 37.2; O2SAT 96
[2019-05-02 03:55] VITALS: BP 149/81; PULSE 66; RESP 16; TEMP 36.7; O2SAT 95
[2019-05-02] MEDS: Acetaminophen Solution 650 MG/20.3 ML CUP PO ×2 (04:41→09:44)
[2019-05-02 07:36] VITALS: BP 162/71; PULSE 56; TEMP 36.7; O2SAT 97
[2019-05-02 07:46] LABS: Anion Gap 8.3 mmol/L (3-11); BUN 5 mg/dL (7-18); CO2 25.7 mmol/L (21.0-32.0); CREATININE 0.81 mg/dL (0.55-1.02); Calcium 8.3 mg/dL (8.5-10.1); Chloride 109 mmol/L (98-107); Glucose 93 mg/dL (74-106); Potassium 3.4 mmol/L (3.5-5.1); Sodium 143 mmol/L (136-145)
[2019-05-02] MEDS: Docusate Sodium 100 MG CAP PO (09:44)
[2019-05-02] MEDS: Enoxaparin 40 MG/0.4 ML SYR SC (09:44)
--- NOTE | 2019-05-02 09:47 | OT.INTREAT ---
Date of service: 05/02/19 Time of Service: 08:45 Occupational Therapy Notes Occupational Therapy Inpatient Treatment Note Date: 05/02/19 PRECAUTIONS: Fall, Standard, Full code SUBJECTIVE: Pt was transitioning to chair with PT when OT arrived. She was agreeable to OT session and notes that her (L) arm hurts but she is moving it more. OBJECTIVE: PAIN: c/o pain in (L) UE/LE FUNCTIONAL MOBILITY Supine-sit: (S) Sit-stand: CGA Stand-sit: CGA Bed-Chair: CGA with hemiwalker BATHING: sitting in chair with max (A) Set up Upper Body: min vc (I) washing face, (B) UE, abdomen with cues for (L) Arm positioning to decrease pain,max (A) back Lower Body: (I) (B) upper thighs and (R) LE to foot. DRESSING: Sitting in chair Upper Extremity: Mod (A) don and doffing hospital gown due to pain in (R) UE Lower Extremity: Able to (I) don and doff (R) sock but requires vc for performance and leg positioning GROOMING: Standing at sink with hemiwalker pt was (I) with brushing teeth TOILETING: Device: toilet Assist: with min vc (I) EATING: (I) in seated position PLAN: Progression of functional (I) in ADL/IADL routines. Next session OT will work with pt on adaptive equipment to promote increased functional (I) and decreased pain while performing ADLs. TREATMENT CODES/TIME: [id number], 40 minutes Destiny Capps OTR/L [facility]
--- NOTE | 2019-05-02 10:05 | PT.INTREAT ---
Date of service: 05/02/19 Time of Service: 10:34 PT Notes Visit Reasons: HUMEROUS FRACTURE,TIBIAL FRACTURE 05/02/2019 SUBJECTIVE: Leann stating she feels pretty good today. Some discomfort in the foot with weight bearing. She is agreeable to a SNF if this is appropriate for her. She does not know if she will be able to manage on her own at this point. OBJECTIVE: Supine in bed. Agreeable to PT treatment. TRANSFERS Supine to sit: Min A Sit to stand: CGA Stand to sit: CGA GAIT: Device: Hemiwalker R UE Weight bearing: AT L Assist: CGA Distance: 20'+10' Deviation: Walking boot donned on L THEREX: Instruct in seated LAQ to be performed frequently when sitting in her chair. ASSESSMENT: Pt is progressing well with her gait with decreased assist required today. She is managing her pain well. She is unsure if she should go home alone or go to SNF for short time for rehab. I think a SNF will be a good choice for her for a short rehab to improve her independence and safety with her mobility. PLAN: Continue current POC. Treatment time: 25 [id number] Dary Genao PTA
[2019-05-02 10:58] VITALS: BP 130/74; PULSE 64; RESP 16; TEMP 37; O2SAT 96
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
--- NOTE | 2019-05-02 13:51 | PT.INTREAT ---
Date of service: 05/02/19 Time of Service: 12:40 PT Notes Visit Reasons: HUMEROUS FRACTURE,TIBIAL FRACTURE 05/02/2019 SUBJECTIVE: Leann stating that she is leaving the hospital but is unclear where she is going. Minimal pain complaints. She does note feeling a little woozy with ambulation. OBJECTIVE: Seated in her chair. Agreeable to PT treatment. TRANSFERS Sit to and: CGA Stand to sit: CGA GAIT Device: aurelio walker R UE Weight bearing: AT L Assist: CGA Distance: 50' Deviation: Step to pattern ASSESSMENT: Doing well with gait progression with minimal discomfort through the foot or left shoulder. Pt is more confused this afternoon regarding her POC and overall situation. PLAN: Pt to be discharged to SNF. Refer to discharge summary for details. Treatment time: Dary Genao PTA
--- NOTE | 2019-05-02 17:15 | CMDISCH_ITS ---
- If Service Date Differs Date of service: 05/02/19 Time of Service: 17:15 LACE Index Scoring Tool - Questions: Length of Stay (in days): 4 - 6 Acuity (Admit via E.D.?): No Comorbidities: Dementia E.D. Visits: 0 - Answers: Total Score: 7 Risk of Readmission: Low Risk Care Management Discharge Reason for Hospitalization: Fracture of the humerous and tibia Discharge Plan: Leann was transported to [facility] via [facility] ambulance transfer. She will have a short skilled rehab stay prior to returning home. CM contacted her daughter, Ila, to inform her of the plan and to connect her with admissions at [facility]. She will follow up with Ortho, as recommended. Patient/Family Education Needs: Review discharge instructions regarding activity levels and medications, discussion of goals of care. Services Needed at Discharge: Long-Term Facility ([facility]), Transportation ([facility] ambulance)
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
--- NOTE | 2019-05-04 09:34 | INDS_ITS ---
Date of service: 05/04/19 Time of Service: 09:34 PT Notes Visit Reasons: HUMEROUS FRACTURE,TIBIAL FRACTURE Inpatient Physical Therapy Discharge Summary Dates: 05/04/2019 Dates of Service: 05/01/2019 through 05/02/2019 This is a clinical summary of care provided on the duration of dates listed above. No charge was made in the completion of this documentation. Referring Doctor: Andrea Perez M.D. PT Orders: PT CONSULT: Eval for assistive device? Precautions: Fall. Standard. Activity as tolerated. Sling on L UE. WBAT on L LE. Patient Profile/Admitting Diagnosis: Pt is an 81-year-old female, with a history of dementia, that presented to the ER on 04/28/2019 after a fall onto her left side. Transferred from [facility] due to limited orthopedic coverage. Pt was admitted to the hospital with a minimally displaced spiral oblique fracture of the left fibula and an impacted humeral neck fracture. PMHX: Medical History Basal cell carcinoma of skin (Acute) 2017 Chronic anxiety (Acute) Chronic constipation (Acute) GERD (gastroesophageal reflux disease) (Chronic) Hiatal hernia (Chronic) Major depression, chronic (Acute) Osteopenia (Acute) Social History/Home Situation: Pt lives alone in an apartment in [place]. She notes that she does not have any stairs to enter, only a small step up onto the sidewalk. Daughter lives in [place]. Equipment Owned/DME: old cane at home Subjective: NT Objective: General Observation: NT Mental Status: NT Pain: NT ROM: Right Upper Extremity: Shoulder Flexion WFL. Shoulder abduction WFL. Elbow flexion WFL. Wrist flexion WFL. Opening and closing of hand WFL. Left Upper Extremity: Shoulder Flexion WFL. Shoulder abduction WFL. Elbow flexion WFL. Wrist flexion WFL. Opening and closing of hand WFL. Right Lower Extremity: Hip flexion WFL. Hip abduction WFL. Knee flexion WFL. Ankle dorsiflexion WFL. Ankle plantarflexion WFL. Left Lower Extremity: Hip flexion WFL. Hip abduction WFL. Knee flexion WFL. Ankle dorsiflexion WFL. Ankle plantarflexion WFL. Strength: Right Upper Extremity: Shoulder flexors 5/5. Shoulder abductors 5/5. Elbow flexors 5/5. Elbow extensors 5/5. Quality Management Coordinator strong. Left Upper Extremity: Shoulder flexors 2+/5. Shoulder abductors 2+/5. Elbow flexors 3+/5. Elbow extensors 3+/5. Quality Management Coordinator strong. Right Lower Extremity: Hip flexors 5/5. Hip abductors 5/5. Knee flexors 5/5. Knee extensors 5/5. Ankle dorsiflexors 5/5. Ankle plantarflexors 5/5. Left Lower Extremity: Hip flexors 3-/5. Hip abductors 3-/5. Knee flexors 3-/5. Knee extensors 3-/5. Ankle dorsiflexors 3-/5. Ankle plantarflexors 3-/5. Sensation: Intact as to pain and pressure on bilateral lower extremities. Bed Mobility/Transfers: Rolling CGA Supine to sit CGA Sit to supine CGA Sit to stand CGA Stand to sit CGA Bed to chair CGA Chair to bed CGA Gait: Pt was able to perform a standing pivot with 50 feet from the bed to the chair, WBAT on the L LE, using a aurelio-walker with CGA. Sling on L UE. Difficulty shifting weight on to R UE through walker to move R LE forward and appears to be hesitant to put weight onto her L LE. Decreased step length and height. Decreased estefania. Balance: Static Sitting: Normal Dynamic Sitting: Normal Static Standing: Fair Dynamic Standing: Fair Assessment: Pt is an 81-year-old female, with a history of dementia, that presented to the ER on 04/28/2019 after a fall onto her left side. Transferred from [facility] due to limited orthopedic coverage. Pt was admitted to the hospital with a minimally displaced spiral oblique fracture of the left fibula and an impacted humeral neck fracture. Pt presents to physical therapy with impairment level findings and functional limitations as listed below. AM-PAC score of 14 with 61% deficit. She would continue to benefit from skilled physical therapy at this time. Patient presented with clinical signs and symptoms consistent with current/admitting diagnoses that have resulted to mobility limitations, gait instability, and generalized weakness as demonstrated by the following impairment level findings: 1. Decreased strength to L LE and UE major muscle groups 2. Impaired sitting/standing balance 3. Impaired activity tolerance 4. Limitation of joint range of motion in left UE and LE due to pain Impairments continue to contribute to the following functional limitations: 1. Dependent bed mobility skills 2. Increased dependence with transfers 3. Inability to safely ambulate without assistive device and physical assistance 4. Increase completion time for mobility ADL performance 5. Increased fall risk 6. Inability to negotiate steps alone safely Goals: Goals X1 week 1. Supine-Sit independent NOT MET 2. Sit-Supine independent NOT MET 3. Sit-Stand independent NOT MET 4. Stand-Sit independent NOT MET 5. Bed-Chair independent NOT MET 6. Chair-Bed independent NOT MET 7. Independent gait on level surface with use of least restrictive device for at least 300 feet without report of pain nor dyspnea NOT MET 8. Independent stair negotiation while holding onto bilateral rails for at least 4 steps without report of pain nor dyspnea NOT MET 9. Independent with home exercise program NOT MET 10. Good static and dynamic standing balance/tolerance NOT MET DISCHARGE RECOMMENDATIONS: Pt will benefit from longterm facility placement for continued skilled physical therapy in order to progress mobility level, strength, and balance in preparation for a safe discharge to home. TREATMENT CODE/TIME: MA. Thank you very much for this referral. Nancy Mccall PT, DPT, CLT [facility] [place], [place]
== END 2019-05-02 13:38 | disposition skilled nursing facility (03) | DRG 563 ==
PROVIDERS: Family Medicine; Admitting Provider Family Medicine; Visit Provider Family Medicine
DX: S42.252A Displaced fracture of greater tuberosity of left humerus, initial encounter for closed fracture (principal); S82.432A Displaced oblique fracture of shaft of left fibula, initial encounter for closed fracture; W18.30XA Fall on same level, unspecified, initial encounter; R41.0 Disorientation, unspecified; Y92.014 Private driveway to single-family (private) house as the place of occurrence of the external cause; F41.8 Other specified anxiety disorders; K21.9 Gastro-esophageal reflux disease without esophagitis; M85.80 Other specified disorders of bone density and structure, unspecified site; F03.90 Unspecified dementia, unspecified severity, without behavioral disturbance, psychotic disturbance, mood disturbance, and anxiety
CPT/HCPCS: 36415; 80048; 80053; 85027; 97162; 97166; 97530; 97535; 99221; 99222; 99231; 99232; 99239; J1650; NC; 73030; 73610; 85610; 93005; 93010; J1644; L3650; L4361

== ENCOUNTER 2019-06-07 13:04 | Outpatient (CLI) | payer MEDICARE, SELFPAY ==
--- NOTE | 2019-06-07 11:00 | DI.RAD_ITS ---
EXAM: XR SHOULDER LT COMPLETE 2+V CLINICAL HISTORY: f/u TECHNIQUE: COMPARISON: XR SHOULDER LT COMPLETE 2+V from 04/30/2019 FINDINGS: Two views were obtained. Previously described fracture of the greater tuberosity of the humerus is a gain noted with little interval change in alignment allowing for differences in projection in compari son with examination of April. IMPRESSION:
--- NOTE | 2019-06-07 11:00 | DI.RAD_ITS ---
EXAM: XR ANKLE LT COMPLETE CLINICAL HISTORY: f/u TECHNIQUE: COMPARISON: XR ANKLE LT COMPLETE from 04/30/2019 FINDINGS: Three views were obtained. Previously described fracture of the distal fibula is again noted with no gross interval change in alignment the fracture fragments in comparison with previous examination Fe bruary 9. IMPRESSION:
== END 2019-06-07 13:24 ==
PROVIDERS: Visit Provider Orthopaedic Surgery
DX: S82.832D Other fracture of upper and lower end of left fibula, subsequent encounter for closed fracture with routine healing; S42.352D Displaced comminuted fracture of shaft of humerus, left arm, subsequent encounter for fracture with routine healing; X58.XXXD Exposure to other specified factors, subsequent encounter
CPT/HCPCS: 99213; 73030; 73610

== ENCOUNTER 2019-07-05 10:31 | Outpatient (CLI) | payer MEDICARE, SELFPAY ==
--- NOTE | 2019-07-05 09:00 | DI.RAD_ITS ---
EXAM: XR ANKLE LT 2V CLINICAL HISTORY: f/u TECHNIQUE: 2D digital imaging was performed. COMPARISON: XR ANKLE LT COMPLETE from 06/07/2019 FINDINGS: BONES: There has been continued healing of the distal left fibular fracture. No change in alignment of the fracture is noted. No bony destructive lesion is seen. No new fracture or dislocation is appr eciated. There is a small spur at the plantar surface of the calcaneus. An enthesophyte is seen at the Achilles insertion site. JOINTS:The ankle mortise is normally aligned. SOFT TISSUE: Normal. IMPRESSION: Stable healing distal left fibular fracture. DATA REPOSITORY: RADIATION DOSE DELIVERED:
--- NOTE | 2019-07-05 09:00 | DI.RAD_ITS ---
EXAM: XR SHOULDER LT COMPLETE 2+V CLINICAL HISTORY: f/u. TECHNIQUE: 2D digital imaging was performed. COMPARISON: XR SHOULDER LT COMPLETE 2+V from 04/30/2019 XR SHOULDER LT COMPLETE 2+V from 06/07/2019 FINDINGS: BONES: There has been no change in alignment of the proximal left humeral fracture. No bony destruct min lesion is seen. No new fracture or dislocation is present. JOINTS: No dislocation present. SOFT TISSUE: Normal. IMPRESSION: Stable proximal left humeral fracture. DATA REPOSITORY: RADIATION DOSE DELIVERED:
== END 2019-07-05 10:51 ==
PROVIDERS: Visit Provider Orthopaedic Surgery
DX: S42.352D Displaced comminuted fracture of shaft of humerus, left arm, subsequent encounter for fracture with routine healing (principal); S82.832D Other fracture of upper and lower end of left fibula, subsequent encounter for closed fracture with routine healing; M77.32 Calcaneal spur, left foot
CPT/HCPCS: 99213; 73030; 73600